=== PATIENT | female | born 1975 | race Caucasian/White ===

== ENCOUNTER → 2022-03-24 09:01 | Outpatient (CLI) | payer BC, SELFPAY ==
[2022-03-24 09:48] LABS: Basophils % 0.2 % (0.1-2.0); Eosinophils # 0.1 K/mm3 (0.0-0.4); Eosinophils % 1.5 % (0.1-12.0); Hematocrit 39.6 % (37.0-47.0); Hemoglobin 12.3 g/dL (12.2-16.2); Lymphocytes # 1.8 K/mm3 (0.7-4.5); Lymphocytes % 22.3 % (10-50); Mean Corpuscular HGB Conc 31.1 g/dL (31.8-35.4); Mean Corpuscular Hemoglobin 27.7 pg (27.0-31.2); Mean Corpuscular Volume 89.2 fl (81-99); Mean Platelet Volume 8.5 fl (7.4-10.4); Monocytes # 0.3 K/mm3 (0.1-1.0); Monocytes % 3.4 % (1.7-9.3); Neutrophils # 5.7 K/mm3 (1.8-7.8); Neutrophils % 72.5 % (37.0-80.0); Platelet Count 294 K/mm3 (142-424); Red Blood Count 4.44 M/mm3 (4.20-5.40); Red Cell Distribution Width 14.8 % (11.5-17.5); White Blood Count 7.8 K/mm3 (4.8-10.8)
[2022-03-24 10:12] LABS: Chloride 106 mmol/L (98-107); Potassium 4.4 mmoL/L (3.5-5.1); Sodium 139 mmol/L (136-145)
[2022-03-24 10:14] LABS: Blood Urea Nitrogen 8 mg/dl (7-17); Estimated Glomerular Filt Rate 107 ml/min (>60); GFR (African American) 130 ML/MIN (>60)
[2022-03-24 10:15] LABS: Alanine Aminotransferase 19 U/L (12-78); Albumin Level 3.9 g/dl (3.5-5.0); Albumin/Globulin Ratio 1.3 (1.1-1.8); Alkaline Phosphatase 101 U/L (38-126); Anion Gap 11.4 mEq/L (5-15); Aspartate Amino Transferase 30 U/L (14-36); Calcium 8.5 mg/dl (8.4-10.2); Carbon Dioxide 26 mmol/L (22.0-30.0); Chol/HDL Ratio 3.7 (1-3.5); Cholesterol 248 mg/dl (140-200); Glucose 86 mg/dl (74-100); HDL Cholesterol 67 mg/dl (40-60); Iron 45 ug/dL (37-170); Total Protein,Serum 6.9 g/dl (6.3-8.2); Triglycerides 120 mg/dl (30-150); VLDL Cholesterol 24 mg/dL (0-40)
[2022-03-24 10:22] LABS: Bilirubin,Total < 0.1 mg/dl (0.2-1.3)
[2022-03-24 10:27] LABS: Direct LDL Cholesterol 153.11 mg/dL (100-129)
[2022-03-24 10:47] LABS: Thyroid Stimulating Hormone 2.26 uIU/mL (0.465-4.68)
[2022-03-24 10:51] LABS: Ferritin 30.1 ng/ml (6.24-137)
== END ==
PROVIDERS: PCP Family Medicine; Visit Provider Physician Assistant
DX: D50.8 Other iron deficiency anemias (principal); E78.5 Hyperlipidemia, unspecified; E66.01 Morbid (severe) obesity due to excess calories; Z68.42 Body mass index [BMI] 45.0-49.9, adult
CPT/HCPCS: 36415; 80053; 80061; 82728; 83540; 84443; 85025

== ENCOUNTER 2024-03-19 09:55 | Outpatient (CLI) | payer BC, SELFPAY ==
[2024-03-19 10:43] LABS: Basophils # 0.1 K/mm3 (0-0.2); Basophils % 2.4 % (0.1-2.0); Eosinophils # 0.1 K/mm3 (0.0-0.4); Hemoglobin 17.3 g/dL (12.2-16.2); Lymphocytes # 1.3 K/mm3 (0.7-4.5); Lymphocytes % 22.7 % (10-50); Mean Corpuscular HGB Conc 31.4 g/dL (31.8-35.4); Mean Corpuscular Volume 92.4 fl (81-99); Mean Platelet Volume 9.2 fl (7.4-10.4); Monocytes # 0.2 K/mm3 (0.1-1.0); Monocytes % 3.5 % (1.7-9.3); Neutrophils % 70.4 % (37.0-80.0); Platelet Count 147 K/mm3 (142-424); Red Blood Count 5.95 M/mm3 (4.20-5.40); Red Cell Distribution Width 14.7 % (11.5-17.5); White Blood Count 5.7 K/mm3 (4.8-10.8)
[2024-03-19 10:56] LABS: Alanine Aminotransferase 34 U/L (12-78); Albumin Level 4.2 g/dl (3.5-5.0); Albumin/Globulin Ratio 1.4 (1.1-1.8); Alkaline Phosphatase 92 U/L (38-126); Anion Gap 9.1 mEq/L (5-15); Aspartate Amino Transferase 39 U/L (14-36); Bilirubin,Total 0.5 mg/dl (0.2-1.3); Blood Urea Nitrogen 12 mg/dl (7-17); Calcium 9.3 mg/dl (8.4-10.2); Carbon Dioxide 26 mmol/L (22.0-30.0); Chloride 106 mmol/L (98-107); Chol/HDL Ratio 3.8 (1-3.5); Cholesterol 207 mg/dl (140-200); Estimated Glomerular Filt Rate 106 ml/min (>60); GFR (African American) 129 ML/MIN (>60); Globulin 2.9 g/dL (1.3-3.2); Glucose 87 mg/dl (74-100); HDL Cholesterol 55 mg/dl (40-60); Potassium 4.1 mmoL/L (3.5-5.1); Sodium 137 mmol/L (136-145); Total Protein,Serum 7.1 g/dl (6.3-8.2); Triglycerides 110 mg/dl (30-150); VLDL Cholesterol 22 mg/dL (0-40)
[2024-03-19 11:07] LABS: Direct LDL Cholesterol 118.79 mg/dL (100-129)
[2024-03-19 11:08] LABS: Iron 57 ug/dL (37-170)
[2024-03-19 11:27] LABS: Thyroid Stimulating Hormone 2.12 uIU/mL (0.465-4.68)
== END 2024-03-19 23:59 | disposition home or self-care (01) ==
LOC: LAB 09:57
PROVIDERS: PCP Family Medicine; Visit Provider Physician Assistant
DX: E78.5 Hyperlipidemia, unspecified (principal); D50.9 Iron deficiency anemia, unspecified; E66.01 Morbid (severe) obesity due to excess calories; Z68.41 Body mass index [BMI] 40.0-44.9, adult
CPT/HCPCS: 36415; 80050; 80053; 80061; 83540; 84443; 85025

== ENCOUNTER 2024-03-22 09:07 | Outpatient (CLI) | payer BC, SELFPAY ==
[2024-03-22 09:27] LABS: Basophils % 0.5 % (0.1-2.0); Eosinophils # 0.1 K/mm3 (0.0-0.4); Eosinophils % 0.6 % (0.1-12.0); Hematocrit 38.9 % (37.0-47.0); Hemoglobin 12.7 g/dL (12.2-16.2); Lymphocytes # 1.8 K/mm3 (0.7-4.5); Lymphocytes % 22.4 % (10-50); Mean Corpuscular HGB Conc 32.7 g/dL (31.8-35.4); Mean Corpuscular Hemoglobin 28.7 pg (27.0-31.2); Mean Corpuscular Volume 87.7 fl (81-99); Mean Platelet Volume 8.2 fl (7.4-10.4); Monocytes # 0.4 K/mm3 (0.1-1.0); Monocytes % 4.4 % (1.7-9.3); Neutrophils # 5.7 K/mm3 (1.8-7.8); Platelet Count 246 K/mm3 (142-424); Red Blood Count 4.44 M/mm3 (4.20-5.40); Red Cell Distribution Width 14.8 % (11.5-17.5)
[2024-03-22 10:19] LABS: Blood Urea Nitrogen 12 mg/dl (7-17); Estimated Glomerular Filt Rate 106 ml/min (>60); GFR (African American) 129 ML/MIN (>60)
== END 2024-03-22 23:59 | disposition home or self-care (01) ==
LOC: LAB 09:07
PROVIDERS: PCP Physician Assistant; Visit Provider Physician Assistant
DX: I10 Essential (primary) hypertension (principal); Z82.49 Family history of ischemic heart disease and other diseases of the circulatory system; R07.89 Other chest pain
CPT/HCPCS: 36415; 82565; 84520; 85025

== ENCOUNTER 2024-04-04 12:21 | Outpatient (CLI) | payer BC, SELFPAY ==
--- NOTE | 2024-04-04 12:22 | CT_ITS ---
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 A noncontrast coronary calcium scan was performed. A CT attenuation threshold of 130 Hounsfield units (HU) was used for the detection of calcium in contiguous voxels of 1 sq mm in area to be counted as individual lesions. Bolus tracking in the ascending aorta with a threshold of 180 HU was performed. Immediately afterwards, ECG synchronized cardiac CT was then performed from the cardiac base to apex using retrospective gating with ECG tube current modulation. A total of 85 mL of Isovue 370 mg/mL contrast medium was administered at 5 mL/sec followed by a saline flush using a biphasic injection protocol. A tube voltage of 120 KVp was used. The patient received the following medications prior to the cardiac CT. 150 mg of oral metoprolol 10 mg of intravenous metoprolol 15 mg of oral ivabradine 0.8 mg of sublingual nitroglycerin The average heart rate at the time of acquisition was 69 bpm and regular. Image Reconstruction Transaxial images were reconstructed at 0.67 mm slide thickness. Data was reviewed interactively on an advanced workstation capable of 2 and 3-dimensional displays in all conventional reconstruction formats, including multiplanar reformations, maximum intensity projections, curved multiplanar reformations, and volume rendered reconstructions. When applicable, selected routine images describing the relevant coronary anatomy and pathology were saved and sent to PACS. Complications None Technical Quality Overall image quality was fair. Coronary artery opacification was suboptimal. Total DLP (Dose-Length Product) is 1443.5 mGy-cm. The reported value represents the total of one or more individual components during the CT acquisition of this date and at this time, and as such, the same value may appear in more than one CT report depending on the interpreting/reporting physicians. COMPARISON None FINDINGS CT Coronary Calcium Scoring LMA (Left Main Artery) = 0 LAD (Left Anterior Descending) = 0 LCX (Left Coronary Circumflex) = 0 RCA (Right Coronary Artery) = 0 Total Calcium Score = 0 using the AJ-130 method. The interpretation of the calcium heart score is based on the following continuum*: 0 = no calcified plaque detected (risk of coronary artery disease is very low ??? less than 5%) 1-10 = calcium detected in extremely minimal levels (risk of coronary diseases is still low ??? less than 10%) 11-100 = mild levels of plaque detected with certainty (mild or minimal narrowing of heart arteries is likely) 101-400 = definite,at least moderate levels of plaque detected (relatively high risk of a heart attack within 3-5 years) >401-999 = extensive levels of plaque detected (high risk of heart attack, high levels of vascular disease are present, high likelihood of at least one significant coronary narrowing) *The calcium heart score quantifies the burden of coronary calcification/plaque in the coronary arteries. The calcium heart score is not able to evaluate the presence or burden of non-calcified (i.e. soft) plaque. There is no identifiable calcification in the aortic valve, mitral annulus or mitral valve, pericardium, or myocardium. Coronary CT Angiography The coronary arterial system is right dominant. Quantitative Stenosis Grading: Left Main (LM): The left main originates normally from the left sinus of Valsalva. The LM bifurcates into the left anterior descending artery and left circumflex artery. The LM is patent with no evidence of atherosclerosis. Left Anterior Descending (LAD) and Diagonal Branches: The LAD gives off 3 diagonal branch(es). The LAD and its branches are patent with no evidence of atherosclerosis. There is no evidence of LAD-myocardial bridge. Left Circumflex (LCX) and Obtuse Marginals (OM): The LCX gives off 1 Obtuse Marginal (OM) branch(es). The LCX and its branches are patent with no evidence of atherosclerosis. 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 The RCA travels in an interarterial course between the ascending aorta and the pulmonary artery (malignant). The RCA and its branches are patent with no evidence of atherosclerosis. Non-Coronary Cardiac Findings: Analysis of the left ventricular (LV) structure and function was performed after 3-D reconstruction of the LV from axial images, with user-corrected automatic contouring for assessment of LV volumes and user-defined reconstruction from oblique planes for measurement of 3-D cardiac structure and function. -The left ventricle systolic function is normal. -There is no left atrial appendage filling defect. Two right pulmonary veins and two left pulmonary veins drain normally into the left atrium. -No pericardial thickening or calcification. -Central and branch pulmonary arteries in the [id number] are unremarkable. -Thoracic aorta within the visualized thoracic aortic-branches in the [id number] is unremarkable. Extracardiac Structures No significant extra-cardiac findings. Note, however, that this study is focused on the cardiac findings. IMPRESSION -Suboptimal image quality due to significant motion. -No coronary calcification with an Agatston score = 0 using the AJ-130 method. -No obvious evidence of significant flow-limiting atherosclerosis of the coronary arteries. 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 -CAD-RADS 0. Management recommendations per ACC/AHA guidelines*, as clinically appropriate. -Further evaluation of the anomalous RCA with exercise nuclear stress testing is recommended. *Recommendations: CAD RADS 0: Reassurance. Consider non-atherosclerotic causes of chest pain. CAD RADS 1: Consider non-atherosclerotic causes of chest pain. Consider preventive therapy and risk factor modification. CAD RADS 2: Consider non-atherosclerotic causes of chest pain. Consider preventive therapy and risk factor modification, particularly for patients with nonobstructive plaque in multiple segments. CAD RADS 3: Consider further functional testing. Consider symptom-guided anti-ischemic and preventive pharmacotherapy as well as risk factor modification per published guideline statements. CAD RADS 4A: Consider further functional testing or invasive coronary angiography with revascularization per published guideline statements. Consider symptom-guided anti-ischemic and preventive pharmacotherapy as well as risk factor modification per published guideline statements. CAD RADS 4B: Invasive coronary angiography recommended with revascularization per published guideline statements. Consider symptom-guided anti-ischemic and preventive pharmacotherapy as well as risk factor modification per published guideline statements. CAD RADS 5: Consider invasive angiography and/or viability assessment with revascularization per published guideline statements. Consider symptom-guided anti-ischemic and preventive pharmacotherapy as well as risk factor modification per published guideline statements. CRITICAL RESULT None COMMUNICATION Per this written report The coronary and cardiac findings of this CCTA were reviewed, reported, and signed by Cristino Haider MD (Roll Dough Divider) Conclusion Electronically signed by : Makenzie Haider MD 04/07/2024 13:20:33
--- NOTE | 2024-04-04 12:22 | CA_ITS ---
APPROVED REPORT EXAM: Comprehensive 2D, Doppler, and color-flow Echocardiogram Special Education Professor: Ananya Santana RDCS Ht: 4 ft 10 in Wt: 211lbs BSA: 1.86 BP: 146/90 mmHg Indications: HTN,MURMUR,HLP M-Mode Dimensions RVDd 1.17 cm (0.9-2.6) LA Diam 2.99 cm (1.9-4.0) LVDd 5.23 cm (3.5-5.7) LVDs 3.62 cm (3.5-5.7) IVSd 0.60 cm (0.6-1.1) PWd 0.54 cm (0.6-1.1) EF (Teich) 57.90% FS 30.80% EDV (Teich) 131.20 mL ESV (Teich) 55.20 mL LV Diastology E Decel Time 170 (160-240 msec) E/A Ratio 1.3 Mitral Valve MV E Max Xiang. 80.0 (40-130 cm/s) MV A Velocity 62.0 (40-130 cm/s) E/A Ratio 1.29 MV PHT 50.0 ms Left Ventricle The left ventricle is normal size. The left ventricular systolic function is normal. The left ventricular ejection fraction is within the normal range. There is normal left ventricular wall thickness. There is normal LV segmental wall motion. The left ventricular diastolic function is normal. LVEF is 55%. Right Ventricle The right ventricle is normal size. The right ventricular systolic function is normal. Atria The left atrium size is normal. The right atrium size is normal. There is no Doppler evidence of interatrial shunt. Aortic Valve The aortic valve opens well. There is no aortic valvular stenosis. No aortic regurgitation is present. Mitral Valve The mitral valve is normal in structure. No evidence of mitral valve stenosis. Trace mitral regurgitation. Tricuspid Valve The tricuspid valve leaflets are thin and pliable. Trace tricuspid regurgitation. There is insufficient TR jet to estimate RVSP. Pulmonic Valve The pulmonary valve is normal in structure. Trace pulmonic regurgitation. Great Vessels The aortic root is normal in size. The ascending aorta is not well-visualized. IVC is normal in size and collapses >50% with inspiration. Pericardium There is no pericardial effusion. Other Information Study Quality: Adequate Conclusion Normal biventricular systolic function. No significant valvular stenosis or regurgitation. Electronically signed by : Makenzie Haider MD 04/12/2024 23:54:40
[2024-04-04 12:42] VITALS: BMI 44.1
[2024-04-04 12:47] VITALS: BP 122/81; PULSE 89; RESP 18; TEMP 36.6; O2SAT 100
[2024-04-04] MEDS: METOPROLOL TARTRATE 50MG TABLET PO ×2 (12:59→13:43)
[2024-04-04] MEDS: METOPROLOL TARTRATE 25MG TABLET 25 MG ×2 (12:59→13:43)
[2024-04-04] MEDS: IVABRADINE HCL 7.5MG TABLET PO (13:00)
[2024-04-04] MEDS: METOPROLOL TARTRATE 5MG/5ML VIAL 5 MG IV ×2 (14:21→14:35)
[2024-04-04 14:35] VITALS: BP 123/83; PULSE 71; RESP 16; O2SAT 99
[2024-04-04] MEDS: NITROGLYCERIN 0.4MG SL TABLET SL (14:35)
[2024-04-04] MEDS: SODIUM CHLORIDE 0.9% 10ML SYR (RAD ONLY) 10 ML IV (14:39)
[2024-04-04] MEDS: IOPAMIDOL-370 (76%);100ML BOTTLE 85 ML IV (14:39)
[2024-04-04] MEDS: 0.9 % SODIUM CHLORIDE 50 ML VIAL IV (14:40)
[2024-04-04 14:45] VITALS: BP 109/56; PULSE 70; RESP 18; O2SAT 97
[2024-04-04 14:50] VITALS: BP 117/77; PULSE 76; RESP 18; O2SAT 97
== END 2024-04-04 15:00 | disposition home or self-care (01) ==
PROVIDERS: PCP Family Medicine; Visit Provider Physician Assistant
DX: R07.89 Other chest pain (principal); I10 Essential (primary) hypertension
CPT/HCPCS: 75574; 93306; Q9967

== ENCOUNTER 2024-04-30 07:03 | Outpatient (CLI) | payer BC, SELFPAY ==
--- NOTE | 2024-04-30 | CA_ITS ---
APPROVED REPORT Exam: Exercise Treadmill Technologist: Sonya Pickering Ht: 4 ft 10 in Wt: 207 lbs BSA: 1.85 m2 HR: 85 bpm BP: 155/72 mmHg Stress Test Details Test: Exercise stress testing was performed using a Familia protocol. HR Resting HR: 85 bpm Max Heart Rate (APMHR): 171 bpm Max HR Achieved: 171 bpm Target HR (85% APMHR): 145 bpm % of APMHR: 100 Recovery HR: 106 bpm BP Resting BP: 155.0/72.0 mmHg Max BP: 176.0/76.0 mmHg Recovery BP: 119.0/77.0 mmHg ECG Resting ECG: NSR, normal Clinical Highest Stage Achieved: III Stress ECG Conclusion Exercised 6:31 on Familia Protocol. Max HR: 171 % of PM: 100% Max BP: 176/76 METs: 7.1 Test stopped due to: SOA, Fatigue Symptoms: No CP. Arrhythmias/Ectopy: Rare PVC ST-T Changes: Normal ST response to exercise. Conclusion: Normal GXT. Myoview images reported separately. Electronically signed by : Makenzie Haider MD 05/01/2024 12:38:30
[2024-04-30] MEDS: SODIUM CHLORIDE 0.9% 10ML SYR (RAD ONLY) 10 ML IV ×2 (06:40→08:15)
--- NOTE | 2024-04-30 08:08 | NM_ITS ---
APPROVED REPORT Exam: Nuclear Stress Test Indication: family hx, chest pain Patient Location: Outpatient Stress Tech: Sonya Araujo MI Tech:SHERYL Ferris RT (R)(N)(M) Ht: 4 ft 10 in Wt: 202 lbs Bra Size: 40ddd HR: 85 bpm BP: 155/72 mmHg BSA: 1.83 m2 TID: 1.26 BMI: 42.2 History: family hx, chest pain Procedure: Patient exercised on Familia protocol 6:31 minutes and sec, resting heart rate 85 bpm, resting blood pressure 155/72 mmHg, with exercise maximum heart rate achived was 171 bpm which is 100 % of the maximum predicted heart rate and blood pressure was 176/76 mmHg. Test was stopped due to fatigue. Patient denied any complaint of chest pain. Patient has exercise capacity, achieved 7.1 METs of workload on treadmill, the blood pressure response to exercise was . Cardiac Stress and Resting SPECT Images: Cardiac Stress and Resting SPECT images were obtained using technetium 99m Myoview 31.7 mCi stress and 10.09 mCi at rest. Resting and stress imaging in supine and prone positions demonstrate no evidence of fixed or reversible perfusion defects. There is increase in transit ischemic dilatation ratio (TID 1.26), which may be suggestive of multivessel disease or balanced ischemia. Gated imaging demonstrates normal global and regional LV systolic function. LVEF is calculated at 56%. Conclusion: No evidence of fixed or reversible perfusion defects. There is increase in transit ischemic dilatation ratio (TID 1.26), which may be suggestive of multivessel disease or balanced ischemia. Gated imaging demonstrates normal global and regional LV systolic function. LVEF is calculated at 56%. Electronically signed by : Makenzie Haider MD 05/01/2024 12:51:10
[2024-04-30] MEDS: ISOTOPE MYOVIEW (PER STUDY) 1 DOSE IV (09:00)
== END 2024-04-30 23:59 | disposition home or self-care (01) ==
PROVIDERS: Visit Provider Physician Assistant
DX: R07.89 Other chest pain (principal); R93.1 Abnormal findings on diagnostic imaging of heart and coronary circulation
CPT/HCPCS: 78452; 93017; 93018; A9502

== ENCOUNTER 2025-02-14 09:16 | Outpatient (CLI) | payer BC, SELFPAY ==
--- OUTSIDE RECORDS SUMMARY | 2025-01-29 16:00 | XMS_ITS | Encounter Summary ---
[facility] [address] [place] [address] Care Team Providers Care Reactor Service Operator Name Role Phone Arthur Curtis MD Primary Care Provider [phone] Reason for Referral * Diagnostic Imaging (Routine) - Authorized Specialty Diagnoses / Procedures Referred By Martin jolly Referred To Contact Radiology Diagnoses Encounter for screening mammogram for malignant neoplasm of breast Procedures Mammo Screening Digital Tomosynthesis Bilateral With CAD Dimple Mackey APRN [address] [facility] [address] [place], [place] [id number] Phone: tel: fax: [facility] [address] [place] [address] Phone: tel: Referral ID Status Reason Start Date Expiration Date V isits Requested Visits Authorized [id number] Authorized 01/29/2025 04/30/2026 1 1 * Health Education (Routine) - Authorized Specialty Diagnoses / Procedures Referred By Martin t Referred To Contact Bariatrics Diagnoses Obesity (BMI 30-39.9) Procedures NC OFFICE/OUTPATIENT NEW MODERATE MDM 45 MINUTES Dimple Mackey APRN [address] [facility] [address] [place] [address] Phone: tel: fax: [facility] [address] [facility] [address] [place] [address] Phone: tel: fax: Referral ID Status Reason Start Date Expiration Date V isits Requested Visits Authorized [id number] Authorized 01/29/2025 04/30/2026 1 1 Reason for Visit * Reason Comments Gynecologic Exam Encounter Details Date Type Department Care Team (Late st Contact Info) Description 01/29/2025 4:00 PM EDT Office Visit [facility] OBGYN [address] [place] [address] Dimple Mackey, ANT [address] [facility] [address] [place] [id number] Encounter for gynecological examination without abnormal finding (Primary Dx); Obesity (BMI 30-39.9); Encounter for screening mammogram for malignant neoplasm of breast Social History Tobacco Use Types Packs/Day Years Used Date Smoking Tobacco: Never Smokeless Tobacco: Never Tobacco Cessation:Counseling Given: Not Answered Alcohol Use Standard Drinks/Week Comments Not Currently 0 (1 standard drink = 0.6 oz pure alcohol) Occasionally not often i will have a glass of wine. Comments No Sex and Gender Information Value Date Recorded Sex Assigned at Female 01/22/2025 6:26 PM EDT Legal Sex Female 1:39 PM EDT Gender Identity Not on file Sexual Orientation Straight 01/22/2025 6: 26 PM EDT Occupation Industry Job Start Date Job End Date Not on file Not on file Not on file Not on file documented as of this encounter Last Filed Vital Signs Vital Sign Reading Time Taken Comments Blood Pressure 122/84 01/29/2025 3:56 PM EDT Pulse - - Temperature - - Respiratory Rate 18 01/29/2025 3:56 PM EDT Oxygen Saturation - - Inhaled Oxygen Concentration - - Weight 85.3 kg (188 lb) 01/29/2025 3:56 PM EDT Height 147.3 cm (4' 9.99 ) 01/29/2025 3:56 PM ED T Body Mass Index 39.3 01/29/2025 3:56 PM EDT documented in this encounter Progress Notes * Dimple Mackey APRN - 01/29/2025 4:00 PM EDT Images from the original note were not included. Gynecologic Annual Exam Note FIELD CARE MANAGER Annual Exam Gynecologic Exam Subjective HPI Kathleen Stafford is a 49 y.o. female, , who presents for annual well woman exam as a established patient. There were no changes to her medical or surgical history since her last visit.. Patient's last menstrual period was 01/30/2024 (within months). Her periods are absent secondary to control. The flow is absent. She denies dysmenorrhea. Marital Status: single. She is not currently sexually active. STD testing recommendations have been explained to the patient and she declines STD testing. 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 Result: non-diagnostic . HPV: negative. Last Completed Pap Smear Awaiting Completion PAP SMEAR (Every 3 Years) Order placed this encounter 01/29/2025 Order placed for LIQUID-BASED PAP SMEAR WITH HPV GENOTYPING IF ASCUS (MIKE,[facility]) by Dimple Mackey APRN 01/29/2024 LIQUID-BASED PAP SMEAR WITH HPV GENOTYPING REGARDLESS OF INTERPRETATION (MIKE,COR,[facility]) 01/19/2022 LIQUID-BASED PAP SMEAR, [facility] ([facility]) 01/11/2021 PAP SMEAR SCANNED History of abnormal Pap smear: no Family history of uterine, colon, breast, or ovarian cancer: yes - Father had colon cancer Performs monthly Self-Breast Exam: no Last mammogram: 06/09/2024. Done at [facility]. There is a copy in the chart. Last Completed Mammogram Awaiting Completion MAMMOGRAM (Every 2 Years) Order placed this encounter 06/09/2024 Mammo Screening Digital Tomosynthesis Bilateral With CAD 06/06/2023 Mammo Screening Digital Tomosynthesis Bilateral With CAD 06/05/2022 Mammo Screening Digital Tomosynthesis Bilateral With CAD 05/11/2021 Mammo Screening Digital Tomosynthesis Bilateral With CAD 04/20/2020 Mammo Screening Digital Tomosynthesis Bilateral With CAD Only the first 5 history entries have been loaded, but more history exists. Colonoscopy: has had a colonoscopy 2 years ago Exercises Regularly: yes Feelings of Anxiety or Depression: no Tobacco Usage?: No Current Outpatient Medications: Contrave 8-90 MG tablet, , Disp: , Rfl: Drospirenone (Slynd) 4 MG tablet, Take 1 tablet by mouth Daily., Disp: 84 tablet, Rfl: 4 Patient is requesting refills of control. 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 Thrombosed hemorrhoids Varicella Age 4 Past Surgical History: Procedure Laterality Date ANKLE ARTHROTOMY SECTION x2 COLONOSCOPY negative Health Maintenance Topic Date Due TDAP/TD VACCINES (1 - Tdap) Never done COLORECTAL CANCER SCREENING Never done HEPATITIS C SCREENING Never done ANNUAL PHYSICAL Never done COVID-19 Vaccine ( - 2023- season) 2024 Pneumococcal Vaccine 50+ (1 of 1 - PCV) Never done ZOSTER VACCINE (1 of 2) Never done Annual Gynecologic Pelvic and Breast Exam 01/29/2025 INFLUENZA VACCINE 03/18/2025 MAMMOGRAM 06/09/2026 PAP SMEAR 01/28/2027 The additional following portions of the patient's history were reviewed and updated as appropriate: allergies, current medications, past family history, past medical history, past social history, past surgical history, and problem list. Review of Systems Constitutional: Negative. Respiratory: Negative. Cardiovascular: Negative. Gastrointestinal: Negative. Genitourinary: Negative. Psychiatric/Behavioral: Negative. I have reviewed and agree with the HPI, ROS, and historical information as entered above. Dimple Vick, MECHANICAL PENCILS ASSEMBLER Objective BP 122/84 Resp 18 Ht 147.3 cm (57.99 ) Wt 85.3 kg (188 lb) LMP 01/30/2024 (Within Months) BMI 39.30 kg/m?? Physical Exam Constitutional: Appearance: Normal appearance. Neck: Thyroid: No thyroid mass or thyromegaly. Pulmonary: Effort: Pulmonary effort is normal. Chest: Chest wall: No mass. Breasts: Right: Normal. No inverted nipple, mass, nipple discharge or skin change. Left: Normal. No inverted nipple, mass, nipple discharge or skin change. Abdominal: General: There is no distension. Palpations: Abdomen is soft. There is no mass. Tenderness: There is no abdominal tenderness. Hernia: No hernia is present. Genitourinary: General: Normal vulva. Labia: Right: No rash. Left: No rash. Vagina: Normal. Cervix: No cervical motion tenderness or lesion. Uterus: Normal. Adnexa: Right adnexa normal and left adnexa normal. Right: No mass or tenderness. Left: No mass or tenderness. Neurological: Mental Status: She is alert. Assessment and Plan Problem List Items Addressed This Visit None Visit Diagnoses Encounter for gynecological examination without abnormal finding - Primary Relevant Medications Drospirenone (Slynd) 4 MG tablet Other Relevant Orders LIQUID-BASED PAP SMEAR WITH HPV GENOTYPING IF ASCUS ([facility]KE,[facility]) Obesity (BMI 30-39.9) Relevant Medications Contrave 8-90 MG tablet Drospirenone (Slynd) 4 MG tablet Other Relevant Orders Ambulatory Referral to Weight Management Program Encounter for screening mammogram for malignant neoplasm of breast Relevant Orders Mammo Screening Digital Tomosynthesis Bilateral With CAD She has lost 30 lbs since last year, insurance stopped covering zepbound. Will refer to [facility] weight loss. Some night sweats, tolerating for now. Can try estroven. Plan to check labs and possibly D/C slynd next year FIELD CARE MANAGER annual well woman exam. Pap guidelines reviewed. Reviewed monthly self breast exams. Instructed to call with lumps, pain, or breast discharge. Ordered Mammogram today Reviewed BMI and weight loss as preventative health measures. Symptoms of menopausal transition reviewed with patient. Return in about 1 year (around 01/29/2026) for Annual physical. Dimple Mackey APRN 01/29/2025 documented in this encounter Plan of Treatment Scheduled Orders Name Type Priority Associated Diagnoses Orde r Schedule Mammo Screening Digital Tomosynthesis Bilateral With CAD Imaging Routine Encounter for screening mammogram for malignant neoplasm of breast Expected: 05/27/2025, Expires: 01/29/2026 Scheduled Referrals Name Type Priority Associated Diagnoses Order Schedule Ambulatory Referral to Weight Management Program Outpatient Referral Routine Obesity (BMI 30-39.9) Ordered: 01/29/2025 documented as of this encounter Procedures Procedure Name Priority Date/Time Associated Diagnosis Comments LIQUID-BASED PAP SMEAR WITH HPV GENOTYPING IF ASCUS, [facility] ([facility]) Routine 01/29/2025 4:26 PM EDT Encounter for gynecological examination without abnormal finding documented in this encounter Results * LIQUID-BASED PAP SMEAR WITH HPV GENOTYPING IF ASCUS (MIKE,COR,MAD) (01/29/2025 4:26 PM EDT) Reference Lab Report FINAL FIELD CARE MANAGER CYTOLOGY REPORT ---- DIAGNOSIS: Negative for intraepithelial lesion or malignancy Multiple factors can influence accuracy of Pap tests; therefore, screening at regular intervals is necessary for early cancer detection. C-Comments Benign cellular changes associated with atrophy are present. ---- Adequacy SATISFACTORY FOR EVALUATION Transformation zone is present. Partially obscuring bacteria is present. Source CERVICAL/ENDOCERVI AC LMP None provided CLINICAL HISTORY: Routine The pap smear is a screening test with limited sensitivity, and false negative tests results can occur. ThinPrep Pap imagined by [employer] (AI assisted system). Screened by SAYRA ALEMAN (ASCP) 02/02/2025 8:52 AM EDT [facility] ThinPrep Vial Cervix uteri structure / Unknown Collection / Unknown 01/29/2025 4:26 PM EDT 01/29/2025 4:26 PM EDT us Dimple Mackey APRN PATHOLOGY/CYTOLOGY ORDERA BLES Final Result [facility]
[address] [place] [address], [place] [phone] documented in this encounter Visit Diagnoses Diagnosis Encounter for gynecological examination without abnormal finding- Primary Obesity (BMI 30-39.9) Encounter for screening mammogram for malignant neoplasm of breast documented in this encounter Care Teams Reactor Service Operator Relationship Specialty Start Date End Date Arthur Curtis MD [address] [facility] [address] [facility] [address] [facility] [id number] PCP - General Family Medicine 01/01/19 documented as of this encounter
--- OUTSIDE RECORDS SUMMARY | 2025-02-14 09:19 | XMS_ITS | Encounter Summary ---
Author Organization [facility] Address [address] [place] [address] Care Team Providers Care Android Ios Developer Name Role Phone Arthur Curtis MD Primary Care Provider [phone] Encounter Details Date Type Department Care Team (Latest Contact Info) Description 01/29/2025 Travel Social History Tobacco Use Types Packs/Day Years Used Date Smoking Tobacco: Never Smokeless Tobacco: Never Alcohol Use Standard Drinks/Week Comments Not Currently [...] on file documented as of this encounter Plan of Treatment Not on file documented as of this encounter Visit Diagnoses Not on filedocumented in this encounter Care Teams Android Ios Developer Relationship Specialty Start Date End Date Arthur Curtis MD [address] [facility] [address] [place] [address] PCP - General Family Medicine 01/01/19 documented as of this encounter
--- OUTSIDE RECORDS SUMMARY | 2025-02-14 09:20 | XMS_ITS | Encounter Summary ---
Author Organization [facility] ystem Address [address] [place] [address] Care Team Providers Care Motor Scooter Repairer Name Role Phone Arthur Curtis MD Primary Care Provider [phone] Encounter Details Date Type Department Care Team (Late st Contact Info) Description 02/03/2025 Results Follow-Up [facility] O[facility] [address] [place] [address] Dimple Mackey, [employer] [address] [facility] [address] [place] [address] Social History Tobacco Use Types Packs/Day Years [...] on filedocumented in this encounter Care Teams Motor Scooter Repairer Relationship Specialty Start Date End Date Arthur Curtis MD [address] [place] [facility] [address] [facility] [place] [address] PCP - General Family Medicine 01/01/19 documented as of this encounter
--- OUTSIDE RECORDS SUMMARY | 2025-02-14 09:20 | XMS_ITS | Clinical Summary ---
Author Organization [facility] Address [address] [place] [address] Care Team Providers Care Aircraft General Repair Mechanic Name Role Phone Arthur Curtis MD Primary Care Provider [phone] Allergies No known active allergies Medications Contrave 8-90 MG tablet 5 Active Drospirenone (Slynd) 4 MG tablet Take 1 tablet by mouth Daily. 84 tablet 4 5 Active atorvastatin (LIPITOR) 10 MG tablet Take 1 tablet by mouth Daily. 4 01/30/20 25 Discontinu ed(*Therap y completed) Drospirenone (Slynd) 4 MG tablet Take 1 tablet by mouth Daily. 84 tablet 4 4 01/30/20 25 Discontinu ed(Reorder ) Active Problems No known active problems Encounters Date Type Department Care Team Description 02/03/2025 Results Follow-Up [facility] [address] [place] [address] Dimple Mackey APRN 01/29/2025 4:00 PM EDT Office Visit [facility] [address] [place] [address] Dimple Mackey, PHOTOENGRAVING PROOFER Encounter for gynecological examination without abnormal finding (Primary Dx); Obesity (BMI 30-39.9); Encounter for screening mammogram for malignant neoplasm of breast 01/29/2025 Travel from Last 3 Months Family History Medical History Relation Name Comments Colon cancer Father Ar Diabetes Father Ar Hypertension Father Ar Stroke Father Ar Stroke Mother Kristen Diabetes Sister She is pre-diab etic Hypertension Sister Ovarian cancer Sister Breast cancer Neg Hx Uterine cancer Neg Hx Relation Name Status Comments Father Ar Mother Kristen Other pancreatic canc er Sister Social History Tobacco Use Types Packs/Day Years [...] file Not on file Not on file Last Filed Vital Signs Vital Sign Reading [...] Mass Index 39.3 01/29/2025 3:56 PM EDT Plan of Treatment Health Maintenance Due Date Last Done Comments TDAP/TD VACCINES (1 - Tdap) 1993 COLOGUARD 2019 COLON CANCER SCREENING 5 YEA R SIGMOIDOSCOPY 2019 COLONOSCOPY 2019 [address] CANCER SCREENING 2019 CT COLONOGRAPHY 2019 FECAL OCCULT BLOOD TEST 2019 FIT Testing (1 year) 2019 ANNUAL PHYSICAL 01/06/2021 HEPATITIS C SCREENING 01/06/2021 COVID-19 Vaccine (4 - 2023-2 5 season) 2024 03/28/2021, 08/11/2020, 07/08/2020 Pneumococcal Vaccine 50+ (1 of 1 - PCV) 2024 ZOSTER VACCINE (1 of 2) 2024 INFLUENZA VACCINE 03/18/2025 Annual Gynecologic Pelvic an d Breast Exam 01/30/2026 01/29/2025, 01/19/2022, 01/11/2021 MAMMOGRAM 06/09/2026 06/09/2024, 05/19, 06/05/2022, Additional history exists PAP SMEAR 01/30/2028 01/29/2025, 01/16, 01/19/2022, Additional history exists Procedures Procedure Name Priority Date/Time Associated Diagnosis Comments LIQUID-BASED PAP SMEAR WITH HPV GENOTYPING IF ASCUS, [facility] ([facility]) Routine 01/29/2025 4:26 PM EDT Encounter for gynecological examination without abnormal finding MAMMO SCREENING DIGITAL TOMOSYNTHESIS BILATERAL W CAD Routine 06/09/2024 9:46 AM EST Encounter for screening mammogram for malignant neoplasm of breast SCANNED - PAP SMEAR Routine 01/11/2021 from Last 3 Months or Most Recently Relevant to Health Maintenance Results * LIQUID-BASED PAP SMEAR WITH HPV GENOTYPING IF ASCUS (MIKE,COR,MAD) (01/29/2025 4:26 PM EDT) Reference Lab Report FINAL [facility] CYTOLOGY REPORT ---- DIAGNOSIS: Negative for intraepithelial [...] results can occur. ThinPrep Pap imagined by [employer] (AI assisted system). Screened by SAYRA ALEMAN (ASCP) 02/02/2025 8:52 AM EDT [facility] ThinPrep Vial Cervix uteri structure / Unknown Collection / Unknown 01/29/2025 4:26 PM EDT 01/29/2025 4:26 PM EDT Dimple Mackey PHOTOENGRAVING PROOFER PATHOLOGY/CYTOLOGY ORDERA BLES Final Result [facility]
[address] [place] [address], * Mammo Screening Digital Tomosynthesis Bilateral With CAD (06/09/2024 9:46 AM EST) Anatomical Region Laterality Modality Breast N/A Mammography 06/13/2024 3:57 PM EST Impressions 06/13/2024 3:57 PM EST No findings suspicious for malignancy. ACR BI-RADS CATEGORY: 1, NEGATIVE RECOMMENDATION: Yearly mammogram, yearly clinical breast exam, and encourage self breast awareness. CAD was used. The standard false negative rate of mammography is between 10% and 25%. Complex patterns or increased breast density will markedly elevate the false negative rate of mammography. A letter, in lay terminology, with the results of this exam will be mailed to the patient. At our facility, a triangular marker is positioned over a palpable area of concern indicated by the patient. A [place] marker is placed over a visible skin lesion. A linear marker indicates a scar. If there is a palpable area of concern, biopsy should be considered regardless of imaging findings. This report was finalized on 06/13/2024 3:[address] Marybeth Smith MD. Narrative 06/13/2024 3:57 PM EST DIGITAL SCREENING MAMMOGRAM WITH TOMOSYNTHESIS HISTORY: Routine screening. IMAGE COMPARISON: 06/06/2023, 06/05/2022, 05/11/2021. TECHNIQUE: Low dose full field digital breast tomosynthesis imaging was performed with 2D and 3D acquisitions consisting of bilateral CC and MLO views. FINDINGS: There are scattered areas of fibroglandular density. The fibroglandular pattern appears stable. There is no mass, worrisome microcalcifications, or architectural distortion to suggest development of malignancy. us Dimple Mackey APRN IMG MAMMOGRAPHY ORDERABLE S Final Result * PAP SMEAR SCANNED (01/11/2021) Grace Bundy Jimbo PECKN CHART REVIEW TABS Final Result [facility]
[address] [place] [address], [place] [phone] from Last 3 Months or Most Recently Relevant to Health Maintenance Insurance [employer] Care Teams Aircraft General Repair Mechanic Relationship Specialty Start Date End Date Arthur Curtis MD [address] [place] [facility] [address] [place] [address] PCP - General Family Medicine 01/01/19
[2025-02-14 11:29] LABS: Alanine Aminotransferase 107 U/L (12-78); Albumin Level 4.1 g/dl (3.5-5.0); Albumin/Globulin Ratio 1.5 (1.1-1.8); Alkaline Phosphatase 99 U/L (38-126); Anion Gap 10.3 mEq/L (5-15); Aspartate Amino Transferase 106 U/L (14-36); Bilirubin,Total 0.6 mg/dl (0.2-1.3); Blood Urea Nitrogen 11 mg/dl (7-17); Calcium 9.3 mg/dl (8.4-10.2); Carbon Dioxide 29 mmol/L (22.0-30.0); Chloride 104 mmol/L (98-107); Cholesterol 205 mg/dl (140-200); Creatinine,Serum 0.60 mg/dl (0.52-1.04); Estimated Glomerular Filt Rate 106 ml/min (>60); GFR (African American) 128 ML/MIN (>60); Globulin 2.8 g/dL (1.3-3.2); Glucose 79 mg/dl (74-100); HDL Cholesterol 46 mg/dl (40-60); Potassium 4.3 mmoL/L (3.5-5.1); Sodium 139 mmol/L (136-145); Total Protein,Serum 6.9 g/dl (6.3-8.2); Triglycerides 100 mg/dl (30-150)
[2025-02-14 12:01] LABS: Thyroid Stimulating Hormone 0.95 uIU/mL (0.465-4.68)
[2025-02-14 15:25] LABS: Hemoglobin A1C 5.4 % (4.0-6.0)
[2025-02-14 15:36] LABS: Iron 74 ug/dL (37-170)
[2025-02-14 16:13] LABS: Ferritin 120 ng/ml (6.24-137)
== END 2025-02-14 23:59 | disposition home or self-care (01) ==
LOC: LAB 09:17
PROVIDERS: PCP Family Medicine; Visit Provider Family Medicine
DX: D50.8 Other iron deficiency anemias (principal); E78.5 Hyperlipidemia, unspecified; Z68.39 Body mass index [BMI] 39.0-39.9, adult
CPT/HCPCS: 36415; 80053; 80061; 82728; 83036; 83540; 84443

== ENCOUNTER 2025-06-01 11:38 | Outpatient (CLI) | payer BC, SELFPAY ==
--- NOTE | 2025-06-01 11:42 | XR_ITS ---
FINAL REPORT CLINICAL HISTORY: no injury , left hip worse than right COMPARISON: None FINDINGS: RIGHT HIP Two views of the right hip with an AP view of the pelvis demonstrate no acute fracture or dislocation. The joint spaces appear normal. The visualized bony structures are well aligned. No soft tissue abnormality is seen. IMPRESSION: No acute bony abnormality. Reviewed, Interpreted and Dictated by Lyndon Low MD Transcribed by Lyndsey Sellers Authenticated and [facility] [place]
--- NOTE | 2025-06-01 11:42 | XR_ITS ---
FINAL REPORT CLINICAL HISTORY: ACUTE LEFT/RIGHT HIP PAIN COMPARISON: None FINDINGS: LEFT HIP: Two views of the left hip demonstrate no acute fracture or dislocation. The joint spaces appear normal. The visualized bony structures are well aligned. No soft tissue abnormality is seen. IMPRESSION: No acute bony abnormality. Reviewed, Interpreted and Dictated by Lyndon Low MD Transcribed by Lyndsey Sellers Authenticated and [facility]
== END 2025-06-01 23:59 | disposition home or self-care (01) ==
LOC: RAD 11:38
PROVIDERS: PCP Family Medicine; Visit Provider Nurse Practitioner Family
DX: M25.551 Pain in right hip (principal); M25.552 Pain in left hip
CPT/HCPCS: 73502